=== PATIENT | female | born 1945 | race Caucasian/White ===

== ENCOUNTER → 2016-12-16 | Outpatient (CLI) | payer MEDICARE, BC ==
--- NOTE | 2016-12-17 08:36 | WWHP ---
DATE OF SERVICE: 12/16/2016 CHIEF COMPLAINT: The patient is here for her routine gynecologic exam. HPI: This is a 71-year-old G3, P2-0-1-2 with an LMP of 1995. The patient is without gynecologic complaints and denies any postmenopausal bleeding. Her last mammogram was about 3 years ago. PAST MEDICAL HISTORY: Atrial fibrillation, chronic lymphocytic leukemia diagnosed at about age 49 and was treated at that time, also history of osteoporosis per the patient. MEDICATIONS: 1. Flecainide 50 mg b.i.d. 2. Metoprolol 25 mg b.i.d. 3. Vitamin D3, 5000 units daily. 4. Osteo-Prime [id number] supplement daily. Allergies to PENICILLIN, SULFA, DOXYCYCLINE, AZITHROMYCIN, CIPRO and ERYTHROMYCIN. Past surgical and family histories are unchanged from the 2016 H&P. SOCIAL HISTORY: She denies tobacco and drug use and has 0 to 2 alcoholic drinks per week. She is and broke up with her boyfriend in 2016 and is not seeing anybody at this time. 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 REVIEW OF SYSTEMS: She has gained about 9 pounds over the last year. She denies respiratory, cardiac, or GI problems. She denies maltreatment or falling. : She denies any problems with urinary leakage. She states she often has to sit on the toilet longer to empty out more thoroughly. PHYSICAL EXAM: Blood pressure 146/78. Height 5 feet 8 inches. Weight 173 pounds. Temperature 97.6, pulse 61. This is a well-developed, well-nourished white female who is alert and oriented x3 in no acute distress. HEENT is within normal limits. NECK: Supple without mass or thyromegaly. CHEST AND LUNGS: Clear to auscultation. HEART: Regular rate and rhythm. Breasts are without mass or discharge. There is a mild generalized tenderness. She states the breasts seem to always be somewhat tender at times. Axillary exam is negative for adenopathy. BACK: Negative for CVA tenderness. ABDOMEN: Soft, nontender, without palpable masses. PELVIC EXAM: External genitalia reveals moderate atrophy without lesions. Cervix and vagina reveal moderate atrophy without lesions. There is no evidence of prolapse. Bimanual exam: The uterus is midposition, nongravid size and nontender. There are no palpable adnexal masses or tenderness. Rectovaginal exam is negative for mass or tenderness and is negative for occult blood. EXTREMITIES: Nontender. IMPRESSION: 1. A 71-year-old menopausal female with normal gynecologic exam. 2. History of osteoporosis per the patient. PLAN: 1. Pap smear was deferred, since she had a normal one last year. 2. Self breast examination was discussed. 3. Mammogram was recommended since she is due for this. Slip was given to patient for this. She states she will probably have this done at [facility] since she has done them there in the past. 4. Osteoporosis management was discussed. She did declines any medications. I have also recommended bone density testing since it has been a number of years since she has had this done and she has declined this as well. 5. She will follow up with Dr. Stone and her surface mount technology operator for blood pressure checks and management. 6. She states she does not get flu shots in the fall and is not interested. 7. She will return in one year.
== END | disposition home or self-care (01) ==
LOC: WWCWWP 15:54
PROVIDERS: ATTEND Obstetrics & Gynecology
DX: Z53.9 Procedure and treatment not carried out, unspecified reason (principal)

== ENCOUNTER → 2017-01-08 | Outpatient (CLI) | payer MEDICARE, BC ==
[2017-01-08 11:09] LABS: CH 29.5; CHCM 31.2; HCT 42.6 % (34.0-46.0); HDW 2.12; HGB 12.9 gm/dL (11.4-16.0); MCH 28.8 pg (25.0-35.0); MCHC 30.3 g/dL (31.0-37.0); MCV 95.2 fL (80.0-100.0); Mean Platelet Volume 7.5; RBC 4.48 m/uL (3.80-5.40); RDW 13.7 % (11.5-15.5); WBC 12.9 k/uL (3.8-10.6); WBC (Perox) 12.87
[2017-01-08 11:14] LABS: Cholesterol 163 mg/dL (<200); Creatine Kinase 80 U/L (30-135); HDL Cholesterol 49 mg/dL (40-60); Iron 66 ug/dL (37-170); LDH 493 U/L (313-618); Triglycerides 72 mg/dL (<150); Uric Acid 4.8 mg/dL (3.7-7.4)
[2017-01-08 11:23] LABS: Total Iron Binding Capacity 343 ug/dL (265-497)
[2017-01-08 11:59] LABS: Appearance,Urine Clear (Clear); Bilirubin,Urine Negative (Negative); Glucose,Urine (UA) Negative (Negative); Ketones,Urine Trace (Negative); Leukocyte Esterase,Urine Trace (Negative); Mucus,Urine Few /hpf; Nitrite,Urine Negative (Negative); PH, Urine 5.5 (5.0-8.0); Particle Count 5208; Protein,Urine Trace (Negative); Specific Gravity,Urine 1.029 (1.001-1.035); Squamous Epithelial Cell,Urine <1 /hpf (0-4); UA Billing (MACRO vs. MICRO) MICRO; Urobilinogen,Urine <2.0 mg/dL (<2.0); WBC,Urine 4 /hpf (0-5)
[2017-01-08 13:16] LABS: Hepatitis C Virus IgG Ab Negative (Negative); Hepatitis C Virus IgG Index 0.01
[2017-01-08 13:49] LABS: Hemoglobin A1C 5.8 % (4.2-6.1)
[2017-01-08 14:13] LABS: Add Differential Manual Differential
[2017-01-08 14:15] LABS: Manual Review Performed; Nucleated Red Blood Cells 0 /100 WBC (0-0); Total Cells Counted 100
[2017-01-08 14:16] LABS: RBC Morphology Normal
[2017-01-09 06:48] LABS: HIV-1/HIV-2 Ab Screen NONREAC (NON REAC)
== END | disposition home or self-care (01) ==
LOC: LABWHC1 10:15
PROVIDERS: ATTEND Internal Medicine
DX: Z00.00 Encounter for general adult medical examination without abnormal findings (principal); C91.90 Lymphoid leukemia, unspecified not having achieved remission; M41.9 Scoliosis, unspecified; I48.91 Unspecified atrial fibrillation; I73.00 Raynaud's syndrome without gangrene; M81.8 Other osteoporosis without current pathological fracture
CPT/HCPCS: 36415; 80061; 81001; 82306; 82550; 82728; 83036; 83540; 83550; 83615; 84439; 84443; 84550; 85025; 86803; 87389

== ENCOUNTER 2017-06-18 10:37 | Day surgery (SDC) | payer MEDICARE, BC ==
[2017-06-16 14:46] VITALS: BMI 24.0
[~2017-06-18 10:37] MED LIST: LACTATED RINGERS 1,000 ML IV ONE; LIDOCAINE 1% 20 ML VIAL (10MG/ML) FOR IV START INTRADERMA PRN
[2017-06-18 11:17] VITALS: TEMP 98.2
[2017-06-18] MEDS ORDERED: PROPOFOL 10 MG/ML 20 ML VIAL IV ONE (11:53)
[2017-06-18] MEDS ORDERED: LIDOCAINE 1% INJ 10MG/ML (20 ML MDV) ONE (11:53)
[2017-06-18 12:30] VITALS: RESP 16
--- NOTE | 2017-06-18 12:33 | P.PCN ---
Date of Procedure: 06/18/17 Procedure(s) Performed: Procedure: Total colonoscopy. Preoperative diagnosis: Screening for neoplasia, patient has family history of colon cancer. Postoperative diagnosis: Minimal sigmoid diverticulosis with no evidence of acute diverticulitis, strictures, polyps or cancer. Preparation: HalfLytely prep. Sedation: Was provided by anesthesia. Brief clinical history: The patient is a 71-year-old female who is scheduled for this evaluation for screening for neoplasia because of family history of colon cancer in her paternal grandmother as well as her grand mother's sister and brother who all of colon cancer in their 60s. Her last colonoscopy in October 2009 was within normal limits. The patient has nonspecific right-sided lower abdominal pains and a computed tomography scan of the abdomen done in May of this year was essentially normal. Procedure: With the patient on her left lateral decubitus position and after informed consent and adequate sedation, the perianal area was inspected and it did not show any fissures or fistulas. There were no masses felt on digital rectal examination. The Olympus PCF Q180 AL videocolonoscope was inserted in the rectum and the usual fashion and advanced to the cecum. There was occasional very small early diverticular orifices seen in the sigmoid with no evidence of acute diverticulitis or strictures. No polyps or tumors were seen or any obvious mucosal abnormality. I retroflexed the endoscope in the rectum before the endoscope was withdrawn. The patient tolerated the procedure well. Plan: The patient was reassured. She will follow-up with you as planned and I recommended repeat exam in 5 years.
[2017-06-18 12:47] VITALS: PULSE 54
[2017-06-18 13:02] VITALS: BP 116/57
== END 2017-06-18 13:16 | disposition home or self-care (01) ==
LOC: ORWHC2ENDO 10:37
DX: Z12.11 Encounter for screening for malignant neoplasm of colon (principal); Z80.0 Family history of malignant neoplasm of digestive organs; K57.30 Diverticulosis of large intestine without perforation or abscess without bleeding; I48.91 Unspecified atrial fibrillation; I73.00 Raynaud's syndrome without gangrene; Z79.82 Long term (current) use of aspirin; Z79.899 Other long term (current) drug therapy; Z88.1 Allergy status to other antibiotic agents; Z88.5 Allergy status to narcotic agent; Z88.0 Allergy status to penicillin
CPT/HCPCS: J2001; J2704; G0105

== ENCOUNTER → 2017-08-11 | Outpatient (CLI) | payer MEDICARE, BC ==
--- NOTE | 2017-08-12 08:07 | WWHP ---
[facility] - HISTORY AND PHYSICAL DATE OF SERVICE: 08/11/2017. CHIEF COMPLAINT: The patient is here for her routine gynecologic exam. HPI: This is a 72-year-old, G3, P2-0-1-2 with an LMP of 1995. The patient states she has been having some abdominal symptoms including right lower quadrant fullness and intermittent brief "poking" type pain in the right abdomen lateral to the umbilicus. She states she can notice this every few days and it does not last very long. These symptoms have been noticed since about 03/2017. Dr. Stone ordered several tests including an abdominal x-ray, CT scan of the abdomen and pelvis as well as hip x-ray. This CT scan was apparently unremarkable per the patient. The patient has brought in copies of these test results, but part of the CT scan report was missing. The patient denies any postmenopausal bleeding. PAST MEDICAL HISTORY: Atrial fibrillation, chronic lymphocytic leukemia diagnosed at age 49 and was treated at that time. Also history of osteoporosis per the patient. PATIENT MEDICATIONS: 1. Flecainide 50 mg b.i.d. 2. Metoprolol 25 mg b.i.d. 3. Vitamin D3 five thousand units daily. ALLERGIES: PENICILLIN, CIPRO, SULFA, DOXYCYCLINE, ZITHROMAX, and ERYTHROMYCIN. Past surgical and family histories are unchanged from the 2016 H&P. SOCIAL HISTORY: She denies tobacco and drug use and has 0 to 2 alcohol-containing drinks per week. She is and is not seeing anybody at this time and has not been sexually active since approximately 2016. 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 REVIEW OF SYSTEMS: Weight has been stable. She denies respiratory, cardiac or GI problems. NEUROLOGIC: She has occasional vertigo when she gets up too quickly. She denies maltreatment or falling. : She denies any significant problems with urinary leakage. PHYSICAL EXAM: Blood pressure 114/62, height 5 feet 8 inches, weight 172 pounds. BMI 26. Temperature 97.8, pulse 65. This is a well-developed, well-nourished, white female, who is alert and oriented x3, in no acute distress. HEENT is within normal limits. NECK: Supple without mass or thyromegaly chest. CHEST AND LUNGS: Clear to auscultation. HEART: Regular rate and rhythm. Breasts are without mass or discharge. Axillary exam is negative for adenopathy. Back negative for CVA tenderness. ABDOMEN: Soft, nontender, without palpable masses. The abdomen is mildly obese, but is nondistended. PELVIC EXAM: External genitalia reveals moderate atrophy with an area of leukoplakia along the posterior aspect of the atrophic labia minora. This measures approximately 0.4 x 1 cm. The area is nontender and nonerythematous. There are no other focal lesions. The cervix and vagina reveals mild to moderate atrophy without lesions. There is no evidence of prolapse. There is no cervical motion tenderness. The uterus is mid position, nongravid size and nontender. There are no palpable adnexal masses or tenderness. Rectovaginal exam is negative for mass or tenderness and is negative for occult blood EXTREMITIES: Nontender. IMPRESSION: 1. 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 Differential diagnosis will include lichen sclerosis, scar tissue, as well as vulvar intraepithelial neoplasia. 2. Right abdominal pains with right lower quadrant fullness without any significant physical findings at this time. 3. Incomplete database. PLAN: 1. Pap smear was deferred since she had a normal one less than 2 years ago. 2. Self breast examination was discussed. 3. Mammogram is scheduled for 08/27/2017 and a slip was given the patient for this. 4. Obtain records from her CT scan done on 05/27/17, and this will be obtained from [facility]. This was a CT scan of her abdomen and pelvis. 5. If the CT scan is unremarkable for ovarian or pelvic pathology, she will then follow up with Dr. Stone regarding the abdominal pain. If there is some adnexal findings, consider pelvic ultrasound. 6. The patient will be scheduled for a vulvar biopsy of the area of leukoplakia. I have stressed the importance of having this done to rule out neoplastic findings. 7. She will return in 1 year and p.r.n. MMLADAN / EBONYN: [id number] /
== END | disposition home or self-care (01) ==
LOC: WWCWWP 10:54
PROVIDERS: ATTEND Obstetrics & Gynecology
DX: Z01.419 Encounter for gynecological examination (general) (routine) without abnormal findings (principal)

== ENCOUNTER → 2017-08-12 | Day surgery (SDC) | payer MEDICARE, BC ==
--- NOTE | 2017-08-12 13:12 | P.PCN ---
Date of Procedure: 08/12/17 Preoperative Diagnosis: Right Vulvar lesion Postoperative Diagnosis: Same Procedure(s) Performed: Right vulvar biopsy Anesthesia: local Surgeon: Matthew Patel Estimated Blood Loss (ml): 1 Pathology: other (Right vulvar biopsy) Condition: stable Disposition: same day Indications for Procedure: This was a 72 year old female who was found to have an area of leukoplakia along the right labia minora. She states she has had discomfort with intercourse in this area for 5 years. Operative Findings: Area of leukoplakia along the posterior aspect of the right labia minora measuring approximately 1.5x 0.4cm. Small amounts of leukoplakia were also noted in the adjacent perineum. Description of Procedure: The procedure and possible risks and complications were discussed with the patient. The patient was placed in the lithotomy position. The lesion on the posterior aspect of the right labia minora measured proximally 1.5 x 0.4 cm. Betadine was used to prep the area. Approximately 2 cc of Lidocaine 1% was used for local anesthesia. Following determination of adequate anesthesia, the lesion was biopsied with a punch biopsy instrument. A silver nitrate stick was used to stop small bleeding areas. The site was hemostatic. Antibiotic ointment and dressing were applied. The patient tolerated the procedure well. The EBL was cc. There were no complications. The biopsy specimen was sent for pathologic examination. The post procedure blood pressure was 154/75 and the pulse was 73. The patient was instructed to remove the dressing in 24 hours, then apply and an antibiotic ointment two times daily. She was instructed to call if problems .
== END ==
LOC: WWCWWP 10:51
PROVIDERS: ATTEND Obstetrics & Gynecology
DX: N90.4 Leukoplakia of vulva (principal)
CPT/HCPCS: 56605; 88305

== ENCOUNTER → 2017-08-27 | Outpatient (CLI) | payer MEDICARE, BC ==
--- NOTE | 2017-08-28 07:31 | US ---
EXAMINATION TYPE: US pelvis complete transvag DATE OF EXAM: 08/27/2017 COMPARISON: NONE CLINICAL HISTORY: R14.0 Abdominal distension. Intermittent right pelvic pain, bloating TECHNIQUE: Transvaginal (TV) and Transabdominal (TA) endovaginal scanning performed for better evalu ation of uterus Date of LMP: 1995 EXAM MEASUREMENTS: Uterus: 6.6 x 2.3 x 4.6 cm Endometrial Stripe: 0.2 cm Right Ovary: unable to visualize Left Ovary: unable to visualize 1. Uterus: Anteverted Nabothian cyst 2. Endometrium: fluid within 3. Right Ovary: Obscured by overlying bowel gas 4. Left Ovary: Obscured by overlying bowel gas 5. Bilateral Adnexa: appears wnl 6. Posterior cul-de-sac: wnl IMPRESSION: Small amount of fluid along the endometrium, follow-up suggested. Limited exam.
== END | disposition home or self-care (01) ==
LOC: RADUSWWP 15:31
PROVIDERS: ATTEND Obstetrics & Gynecology
DX: R10.11 Right upper quadrant pain (principal); R10.2 Pelvic and perineal pain; R14.0 Abdominal distension (gaseous)
CPT/HCPCS: 76830; 76856

== ENCOUNTER → 2017-10-07 | Outpatient (CLI) | payer MEDICARE, BC ==
--- NOTE | 2017-10-07 14:18 | WWPN ---
[facility] - PROGRESS NOTE DATE OF DICTATION: 10/07/2017 CHIEF COMPLAINT: Bulge in the vagina x2 weeks. HPI: This is a 72-year-old G3, P2-0-1-2 with an LMP of 1995. The patient had some problems with some abdominal pain which is described in the 08/11/2017 H and P. She states 2 weeks ago, the pain suddenly seemed to improve and is now completely gone. Also around 1 to 2 weeks ago she started noticing a slight bulge in the vagina when she voided. She was able to touch something inside of the introitus that felt like she was touching something that she did not normally notice. She states it is not painful, but is concerned about this. REVIEW OF SYSTEMS: The patient does have occasional slight urinary leakage when she bends down. Review of systems is otherwise unremarkable. PHYSICAL EXAM: Blood pressure 148/75, height 5 feet 8 inches, weight 172 pounds, temperature 98.8, pulse 64. This is a well-developed, well-nourished, white female, who is alert and oriented x3, in no acute distress. ABDOMEN: Soft, nontender, without palpable masses. PELVIC EXAM: External genitalia reveals [id number] atrophy. The area of her vulvar biopsy done last month is well healed. There is slight scarring at the site of the biopsy site, but otherwise there is no significant pallor or leukoplakia noted. This was treated as lichen sclerosis and she states it is doing much better. The vagina reveals a grade 1 to 2 cystocele at rest and a grade 1 uterine prolapse. With Valsalva, there is a grade 2 to 2-1/2 cystocele. This is midline and is nontender. There is no significant rectocele. The uterus is mid-position, nongravid size and nontender. There are no palpable adnexal masses or tenderness. IMPRESSION: 1. A 72-year-old with minimally symptomatic grade 2 cystocele. 2. Small stress urinary incontinence. 3. Improvement in her abdominal pain. This possibly was being caused by pelvic adhesion that may have released and is now showing itself as some pelvic prolapse. PLAN: 1. I have reassured the patient that this is not life-threatening. She will do Kegel exercises and negative Valsalva exercises and I have given her instructions on this. We will use conservative management at this time. We have also discussed the option of surgical correction if it is significantly worsening. 2. The ACOG pamphlet FAQ 012 was given to the patient regarding pelvic prolapse. 3. She will return in 11 months for her annual exam and p.r.n. if she is having problems. 4. Total time spent with the patient 35 minutes. DOC / MARCIO: [id number] /
== END ==
LOC: WWCWWP 11:52
PROVIDERS: ATTEND Obstetrics & Gynecology
DX: Z53.9 Procedure and treatment not carried out, unspecified reason (principal)

== ENCOUNTER → 2018-12-27 | Outpatient (CLI) | payer MEDICARE, BC ==
[2018-12-27 11:24] LABS: HCT 41.8 % (34.0-46.0); MCHC 31.2 g/dL (31.0-37.0); MCV 89.7 fL (80.0-100.0); Mean Platelet Volume 7.4; Platelet Count 246 k/uL (150-450); RBC 4.66 m/uL (3.80-5.40); RDW 13.7 % (11.5-15.5); WBC 13.9 k/uL (3.8-10.6)
[2018-12-27 17:27] LABS: Albumin 4.4 g/dL (3.80-4.90); Albumin/Globulin Ratio 2.93 (1.60-3.17); Anion Gap 12.3 mmol/L (4.00-12.00); Carbon Dioxide 24.7 mmol/L (21.6-31.8); Globulin 1.5 g/dL (1.6-3.3); LDL Cholesterol,Calculated 108.6 mg/dL (0.0-131.0); Potassium 4.4 mmol/L (3.5-5.5); Total Bilirubin 0.5 mg/dL (0.2-1.2); Total Protein 5.9 g/dL (6.2-8.2); VLDL Calculation 18.4 mg/dL (5.00-40.00)
== END | disposition home or self-care (01) ==
LOC: LABWHC1 10:47
PROVIDERS: ATTEND Nurse Practitioner Adult Health
DX: I10 Essential (primary) hypertension (principal); E78.5 Hyperlipidemia, unspecified; I48.0 Paroxysmal atrial fibrillation
CPT/HCPCS: 36415; 80053; 80061; 84443; 84481; 85027

== ENCOUNTER → 2022-04-16 | Outpatient (CLI) | payer MEDICARE, BC ==
--- NOTE | 2022-04-18 06:26 | MR ---
EXAMINATION TYPE: MR shoulder RT wo con DATE OF EXAM: 04/16/2022 COMPARISON: None HISTORY: Fall. Pain. Multiplanar multiecho imaging of the right shoulder with no contrast. The subscapularis tendon is intact. Biceps tendon is intact. The glenoid dimas appear intact. There is some thickening and increased signal in the supraspinatus tendon near the attachment on the greater tuberosity of the humerus. The infraspinatus tendon is intact. No evidence of a fracture. The AC joint is intact. There is mild hypertrophic spurring at the AC joint without significant subacrom ial impingement. There is some spurring on the humeral head. IMPRESSION: Intrasubstance tear of the supraspinatus tendon. No full-thickness tear. No retraction. 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
== END | disposition home or self-care (01) ==
LOC: RADMRIMAIN 21:35
PROVIDERS: ATTEND Orthopaedic Surgery
DX: M75.111 Incomplete rotator cuff tear or rupture of right shoulder, not specified as traumatic (principal); M19.011 Primary osteoarthritis, right shoulder

== ENCOUNTER → 2022-06-20 | Outpatient (CLI) | payer MEDICARE ==
[2022-06-20 12:39] LABS: Appearance,Urine Clear (Clear); Bilirubin,Urine Negative (Negative); Blood,Urine Negative (Negative); Color,Urine Yellow; Glucose,Urine (UA) Negative (Negative); Ketones,Urine Negative (Negative); Leukocyte Esterase,Urine Negative (Negative); Nitrite,Urine Negative (Negative); PH, Urine 5.5 (5.0-8.0); Protein,Urine Negative (Negative); Specific Gravity,Urine 1.017 (1.001-1.035); Urobilinogen,Urine <2.0 mg/dL (<2.0)
[2022-06-20 18:17] LABS: Chol/HDL Ratio 4.35 Ratio
[2022-06-20 19:07] LABS: HCT 40.5 % (37.2-46.3); HGB 12.2 g/dL (12.0-15.0); MCH 28.2 pg (27.0-32.0); MCHC 30.1 g/dL (32.0-37.0); MCV 93.8 fL (80.0-97.0); NRBC Per 100 WBC 0 /100 WBCS (0.0-0.0); Platelet Count 188 X 10*3/uL (140-440); RBC 4.32 X 10*6/uL (4.10-5.20); RDW 15.6 % (11.5-14.5); WBC 51.59 X 10*3/uL (4.50-10.00)
[2022-06-20 19:10] LABS: Basophils # (M) 0 X 10*3/uL (0.00-0.10); Eosinophils # (M) 0 X 10*3/uL (0.04-0.35); Lymphocytes # (M) 46.95 X 10*3/uL (0.90-5.00); Monocytes # (M) 0.52 X 10*3/uL (0.20-1.00); Neutrophils # (M) 4.13 X 10*3/uL (2.00-8.90); Neutrophils % (M) 8 %; RBC Morphology NORMAL
== END | disposition home or self-care (01) ==
LOC: LABWHC1 11:09
PROVIDERS: ATTEND Internal Medicine
DX: E55.9 Vitamin D deficiency, unspecified (principal); E78.2 Mixed hyperlipidemia; M85.851 Other specified disorders of bone density and structure, right thigh
CPT/HCPCS: 36415; 80061; 81003; 82306; 83036; 84439; 84443; 85025